=== PATIENT | male | born 1955 | race Caucasian/White ===

== ENCOUNTER 2016-11-15 01:16 | Emergency (ER) ==
[2016-11-15 01:17] VITALS: BMI 29.8
[2016-11-15 01:22] VITALS: TEMP 100.4
[2016-11-15] MEDS ORDERED: PREDNISONE PO STA (01:47)
[2016-11-15] MEDS ORDERED: ZITHROMAX PO STA (01:47)
--- NOTE | 2016-11-15 01:47 | ED.PDOC ---
General ED Provider: Dr. MARTHA ANDERSEN Chief Complaint: Cough Stated Complaint: Patient is a 61 year old male who complains of cough for 3 days. Time Seen by Physician: 01:45 Mode of Arrival: Walk-In Information Source: Patient Exam Limitations: No limitations Primary Care Provider: CHIN CHAUDHARY Nursing and Triage Documentation Reviewed and Agree: Yes Review of Systems - Review Of Systems Constitutional: Reports: No symptoms Eyes: Reports: No symptoms Ears, Nose, Mouth, Throat: Reports: Throat pain Respiratory: Reports: Cough Cardiac: Reports: No symptoms GI: Reports: No symptoms : Reports: No symptoms Musculoskeletal: Reports: No symptoms Skin: Reports: No symptoms Neurological: Reports: No symptoms Endocrine: Reports: No symptoms Hematologic/Lymphatic: Reports: No symptoms All Other Systems: Reviewed and Negative Past Medical History - Past Medical History Endocrine: Reports: None Cardiovascular: Reports: Hypertension Respiratory: Reports: COPD Hematological: Reports: None Gastrointestinal: Reports: None Genitourinary: Reports: None Neuro/Psych: Reports: None Musculoskeletal: Reports: None Cancer: Reports: None - Surgical History General Surgical History: Reports: Appendectomy, Cholecystectomy, Hernia Repair - Family History Family History: Reports: Unknown - Social History Smoking Status: Former smoker Hx Substance Use: No Alcohol Screening: None - Immunizations Tetanus Shot up to Date: Yes Physical Exam - Physical Exam Appearance: Ill-appearing, No pain distress, Well-nourished Ill-appearing: Mild Eyes: BRITTANY, EOMI, Conjunctiva clear ENT: Ears normal, Nose normal, Oropharynx normal Respiratory: Breath sounds equal, Breath sounds diminished, Respirations nonlabored Cardiovascular: RRR, Pulses normal, No rub, No murmur GI/: Soft, Nontender, No masses, Bowel sounds normal, No Organomegaly Musculoskeletal: Normal strength, ROM intact, No edema, No calf tenderness Skin: Warm, Dry, Normal color Neurological: Sensation intact, Motor intact, Reflexes intact, Cranial nerves intact, Alert, Oriented Psychiatric: Affect appropriate, Mood appropriate Critical Care Note - Critical Care Note Total Time (mins): 0 Course - Course Orders, Labs, Meds: Orders Category Date Time Status Azithromycin [Zithromax] MEDS 11/15/16 01:47 Discontinued 500 mg PO ONCE STA Prednisone MEDS 11/15/16 01:47 Discontinued 40 mg PO ONCE STA Medications Discontinued Medications Generic Name Dose Route Start Last Admin Trade Name Freq PRN Reason Stop Dose Admin Azithromycin 500 mg 11/15/16 01:47 11/15/16 01:55 Zithromax PO 11/15/16 01:48 500 mg ONCE STA Administration Prednisone 40 mg 11/15/16 01:47 11/15/16 01:55 Prednisone PO 11/15/16 01:48 40 mg ONCE STA Administration Vital Signs: Temp Pulse Resp BP Pulse Ox 11/15/16 02:01 89 129/77 93 L 11/15/16 01:19 100.4 F H 92 H 20 130/77 92 L Departure - Departure Time of Disposition: 01:46 Disposition: HOME SELF-CARE Discharge Problem: Acute bronchitis Qualifiers: Bronchitis organism: other organism Qualifier Code: (J20.8) Acute bronchitis due to other specified organisms Instructions: Acute Bronchitis (ED) Condition: Stable Pt referred to PMD for follow-up: Yes Additional Instructions: Take medications as prescribed Follow up with PCP in 3 days Prescriptions: Azithromycin [Zithromax] 250 mg PO DIRECTED #6 tablet Methylprednisolone [Medrol Dosepak] 4 mg PO DIRECTED #1 pkg Allergies/Adverse Reactions: Allergies No Known Allergies Allergy (Verified 11/15/16 01:35) Home Medications: Ambulatory Orders Fenofibric Acid (Choline) [Trilipix] 45 mg PO DAILY 11/08/12 Aspirin [Aspirin Chewable] 81 mg PO DAILYWM 12/02/15 Hydrochlorothiazide 25 mg PO DAILY 12/02/15 [place]-3 Fatty Acids/Fish Oil [Fish Oil 1,000 mg Softgel] 3 each PO DAILY Acetaminophen [Tylenol Arthritis] 650 mg PO DAILY 11/15/16 Aspirin [Aspirin EC] 81 mg PO DAILYWM 11/15/16 Atorvastatin Calcium 20 mg PO DAILY 11/15/16 Azithromycin [Zithromax] 250 mg PO DIRECTED #6 tablet 11/15/16 Bumetanide 1 mg PO DAILY 11/15/16 Citalopram Hydrobromide [Citalopram HBr] 20 mg PO DAILY 11/15/16 Losartan Potassium [Cozaar] 50 mg PO DAILY 11/15/16 Methylprednisolone [Medrol Dosepak] 4 mg PO DIRECTED #1 pkg 11/15/16 Multivitamin [Multi-Vitamin Daily] 1 tab PO DAILY 11/15/16 Omeprazole 20 mg PO DAILY 11/15/16 Ranitidine HCl [Zantac] 150 mg PO QDAC 11/15/16
[2016-11-15 02:02] VITALS: BP 129/77
== END 2016-11-15 02:02 | disposition home or self-care (01) ==
LOC: ED 01:16
DX: J20.9 Acute bronchitis, unspecified (principal)
CPT/HCPCS: 99283

== ENCOUNTER 2018-02-11 19:54 | Emergency (ER) ==
[2018-02-11 19:55] VITALS: BMI 29.8
[2018-02-11] MEDS ORDERED: LIDOCAINE HCL 1% SDV SUBCUT STA (19:55)
[2018-02-11 19:59] VITALS: BP 159/86; TEMP 99.4
--- NOTE | 2018-02-11 20:17 | ED.PDOC ---
General ED Provider: Dr. CHIN CHAUDHARY-ER Chief Complaint: Puncture Wound Stated Complaint: angelina got a fish hook in my haNd Time Seen by Physician: 20:15 Mode of Arrival: Walk-In Information Source: Patient Exam Limitations: No limitations Primary Care Provider: CHIN CHAUDHARY Nursing and Triage Documentation Reviewed and Agree: Yes Does patient meet sepsis criteria?: No System Inflammatory Response Syndrome: Not Applicable Sepsis Protocol: For patient's 13 years and over: Temp is 96.8 and below OR 101 and greater Pulse >90 BPM Resp >20/minute Acutely Altered Mental Status Are patient's symptoms suggestive of a new infection, such as: -Pneumonia -Skin, Soft Tissue -Endocarditis -UTI -Bone, Joint Infection -Implantable Device -Acute Abdominal Infection -Wound Infection -Meningitis -Blood Stream Catheter Infection -Unknown Skin Complaint Exam - Skin/Soft Tissue Complaint/Exam Onset/Duration: one hour Symptoms Are: Still present Timing: Constant Initial Severity: Mild Current Severity: Mild Location: left hand Character: Reports: Painful Aggravating: Reports: None Alleviating: Reports: None Associated Signs and Symptoms: Reports: Tenderness Related History: Reports: Foreign body Related Surgical History: Reports: None Recent Exposure to Others w/Similar Symptoms: No Joint Tenderness Present: No Differential Diagnoses: Foreign Body Review of Systems - Review Of Systems Constitutional: Reports: No symptoms Eyes: Reports: No symptoms Ears, Nose, Mouth, Throat: Reports: No symptoms Respiratory: Reports: No symptoms Cardiac: Reports: No symptoms GI: Reports: No symptoms : Reports: No symptoms Musculoskeletal: Reports: No symptoms Skin: Reports: Other Neurological: Reports: No symptoms Endocrine: Reports: No symptoms Hematologic/Lymphatic: Reports: No symptoms All Other Systems: Reviewed and Negative Past Medical History - Past Medical History Previously Healthy: Yes Endocrine: Reports: None Cardiovascular: Reports: Hypertension Respiratory: Reports: COPD Hematological: Reports: None Gastrointestinal: Reports: None Genitourinary: Reports: None Neuro/Psych: Reports: None Musculoskeletal: Reports: None Cancer: Reports: None - Surgical History General Surgical History: Reports: Appendectomy, Cholecystectomy, Hernia Repair - Family History Family History: Reports: Unknown - Social History Smoking Status: Former smoker Hx Substance Use: No Alcohol Screening: None - Immunizations Tetanus Shot up to Date: Yes Physical Exam - Physical Exam Appearance: Well-appearing Pain Distress: Mild Eyes: BRITTANY, EOMI, Conjunctiva clear ENT: Ears normal, Nose normal, Oropharynx normal Neck: Supple Respiratory: Airway patent, Breath sounds clear, Breath sounds equal, Respirations nonlabored Cardiovascular: RRR, Pulses normal, No rub, No murmur GI/: Soft, Nontender, No masses, Bowel sounds normal, No Organomegaly Musculoskeletal: Normal strength, ROM intact, No edema, No calf tenderness Skin: Warm, Dry, Normal color Neurological: Sensation intact, Motor intact, Reflexes intact, Cranial nerves intact, Alert, Oriented Psychiatric: Affect appropriate, Mood appropriate Procedures - Foreign Body Removal Location of Foreign Object: left hand between thumb and index finger Foreign Object: fish hook Depth of Object: superficial Type of Anesthesia: Local Medication Used: Yes: Lidocaine Prep: Hibiclens Irrigation: Yes Skin Incised: No Instruments Used: Yes: Manual, Forceps Foreign Body Identified and Removed: Yes Critical Care Note - Critical Care Note Total Time (mins): 0 Course - Course Orders, Labs, Meds: Orders Category Date Time Status Wound [ED WOUND CARE] .ONCE EMERGENCY 02/11/18 20:13 Active Lidocaine HCl/Pf [Lidocaine HCl 1% Sdv] MEDS 02/11/18 19:55 Discontinued 5 ml SUBCUT ONCE STA Medications Discontinued Medications Generic Name Dose Route Start Last Admin Trade Name Freq PRN Reason Stop Dose Admin Lidocaine HCl 5 ml 02/11/18 19:55 02/11/18 20:08 Lidocaine Hcl 1% Sdv SUBCUT 02/11/18 19:56 5 ml ONCE STA Administration Vital Signs: Temp Pulse Resp BP Pulse Ox 02/11/18 19:55 99.4 F 94 H 20 159/86 H 97 Departure - Departure Time of Disposition: 20:17 Disposition: HOME SELF-CARE Discharge Problem: Fish hook injury of hand Qualifiers: Encounter type: initial encounter Laterality: left Qualified Code(s): S69.92XA - Unspecified injury of left wrist, hand and finger(s), initial encounter Instructions: Soft Tissue Foreign Body (ED) Condition: Good Pt referred to PMD for follow-up: Yes IPMP verified?: No Additional Instructions: keep clean and dry--call me if any signs of infection Allergies/Adverse Reactions: Allergies No Known Allergies Allergy (Verified 02/11/18 20:00) Home Medications: Ambulatory Orders Fenofibric Acid (Choline) [Trilipix] 45 mg PO DAILY 11/08/12 Hydrochlorothiazide 25 mg PO DAILY 12/02/15 [place]-3 Fatty Acids/Fish Oil [Fish Oil 1,000 mg Softgel] 3 each PO DAILY Acetaminophen [Tylenol Arthritis] 650 mg PO DAILY 11/15/16 Aspirin [Aspirin EC] 81 mg PO DAILYWM 11/15/16 Atorvastatin Calcium 20 mg PO DAILY 11/15/16 Bumetanide 1 mg PO DAILY 11/15/16 Citalopram Hydrobromide [Citalopram HBr] 20 mg PO DAILY 11/15/16 Losartan Potassium [Cozaar] 50 mg PO DAILY 11/15/16 Multivitamin [Multi-Vitamin Daily] 1 tab PO DAILY 11/15/16 Omeprazole 20 mg PO DAILY 11/15/16 Ranitidine HCl [Zantac] 150 mg PO QDAC 11/15/16 Disposition Discussed With: Patient
== END 2018-02-11 20:20 | disposition home or self-care (01) ==
LOC: ED 19:54
DX: S61.442A Puncture wound with foreign body of left hand, initial encounter (principal)
CPT/HCPCS: 99283

== ENCOUNTER 2018-02-28 20:18 | Emergency (ER) ==
[2018-02-28 20:32] VITALS: BP 168/87; TEMP 98.5; BMI 29.7
[2018-02-28] MEDS ORDERED: SODIUM CHLORIDE 1,000 ML IV STA (20:47)
[2018-02-28] MEDS ORDERED: MORPHINE 4 MG/ML VIAL IVP STA (20:47)
[2018-02-28] MEDS ORDERED: ZOFRAN 4 MG/2 ML IVP STA (20:47)
--- NOTE | 2018-02-28 20:50 | ED.PDOC ---
General ED Provider: Dr. MARTHA ANDERSEN Chief Complaint: Abdominal Pain Stated Complaint: My belly husts. Has been hurting since 2 pm. It was intense at first but now better. It feels like when I had my diverticulitis. I dont have a fever. Had not had a bowel movement today. Pain does not radiate Time Seen by Physician: 20:47 Mode of Arrival: Walk-In Information Source: Patient Exam Limitations: No limitations Primary Care Provider: CHIN CHAUDHARY Nursing and Triage Documentation Reviewed and Agree: Yes Does patient meet sepsis criteria?: No System Inflammatory Response Syndrome: Not Applicable Sepsis Protocol: For patient's 13 years and over: Temp is 96.8 and below OR 101 and greater Pulse >90 BPM Resp >20/minute Acutely Altered Mental Status Are patient's symptoms suggestive of a new infection, such as: -Pneumonia -Skin, Soft Tissue -Endocarditis -UTI -Bone, Joint Infection -Implantable Device -Acute Abdominal Infection -Wound Infection -Meningitis -Blood Stream Catheter Infection -Unknown GI Complaint Exam - Abdominal Pain Complaint/Exam Onset: Gradual Duration: 8 hours Symptoms Are: Still present Timing: Constant Initial Severity: Severe Current Severity: Moderate Location of Pain: LLQ Radiates To: Denies: Chest, Back, Flank, LLQ, RLQ, Inguinal Character: Reports: Sharp, Aching Aggravating: Reports: None Alleviating: Reports: None Associated Signs and Symptoms: Denies: Diaphoresis, Fever, Cough, Chest pain, Dizziness, Back pain, Constipation, Blood in stool, Dysuria, Urinary frequency, Decreased urine output, Decreased appetite, Discharge, Nausea, Vomiting, Diarrhea, Decreased activity AAA Risk Factors: Reports: None Cardiac Risk Factors: Reports: None Testicular Torsion Risk Factors: Reports: None Surgical Obstruction Risk Factors: Reports: None Related Surgical History: Reports: Cholecystectomy, Appendectomy, Kidney Stones Abdominal Findings: Present: Other (Tenderness to palpation on the left lower quadrant.). Absent: Rebound tenderness Differential Diagnoses: Diverticulitis, Gastroenteritis, Ureteral Stone, UTI Review of Systems - Review Of Systems Constitutional: Reports: No symptoms Eyes: Reports: No symptoms Ears, Nose, Mouth, Throat: Reports: No symptoms Respiratory: Reports: No symptoms Cardiac: Reports: No symptoms GI: Reports: Abdominal pain, Poor appetite : Reports: No symptoms Musculoskeletal: Reports: No symptoms Skin: Reports: No symptoms Neurological: Reports: No symptoms Endocrine: Reports: No symptoms Hematologic/Lymphatic: Reports: No symptoms All Other Systems: Reviewed and Negative Past Medical History - Past Medical History Previously Healthy: Yes Endocrine: Reports: None Cardiovascular: Reports: Hypertension Respiratory: Reports: COPD Hematological: Reports: None Gastrointestinal: Reports: Diverticulitis Genitourinary: Reports: Kidney stones (5 years ago ) Neuro/Psych: Reports: None Musculoskeletal: Reports: None Cancer: Reports: None - Surgical History General Surgical History: Reports: Appendectomy, Cholecystectomy, Hernia Repair - Family History Family History: Reports: Unknown - Social History Smoking Status: Former smoker Hx Substance Use: No Alcohol Screening: None - Immunizations Tetanus Shot up to Date: Yes Physical Exam - Physical Exam Appearance: Well-appearing, Well-nourished Pain Distress: Moderate Eyes: BRITTANY, EOMI, Conjunctiva clear ENT: Ears normal, Nose normal, Oropharynx normal Respiratory: Airway patent, Breath sounds clear, Breath sounds equal, Respirations nonlabored Cardiovascular: RRR, Pulses normal, No rub, No murmur GI/: Soft, Tender Musculoskeletal: Normal strength, ROM intact, No edema, No calf tenderness Skin: Warm, Dry, Normal color Neurological: Sensation intact, Motor intact, Reflexes intact, Cranial nerves intact, Alert, Oriented Psychiatric: Affect appropriate, Mood appropriate Interpretation - Radiology Interpretation Radiology Interpretation By: Radiologist Radiology Results: Positive (Mild left hydronephrosis and Hydroureter secondary to a UVJ stone measuring 3-4 mm) Exam Interpreted: CT Scan Critical Care Note - Critical Care Note Total Time (mins): 0 Course - Course Orders, Labs, Meds: Orders Category Date Time Status ED IV/MEDIPORT/POWERPORT .ONCE EMERGENCY 02/28/18 20:47 Active AMYLASE Stat LAB 02/28/18 20:47 Ordered CBC W/ AUTO DIFF Stat LAB 02/28/18 20:47 Ordered COMPREHENSIVE METABOLIC PANEL Stat LAB 02/28/18 20:47 Ordered LIPASE Stat LAB 02/28/18 20:47 Ordered URINALYSIS C & S IF INDICATED Stat LAB 02/28/18 20:52 Ordered 0.9 % Sodium Chloride [Saline Flush] MEDS 02/28/18 20:47 Ordered 1 syr IVF PRN PRN Ketorolac Tromethamine [Toradol] MEDS 02/28/18 21:22 Stat 30 mg IVP ONCE STA Morphine Sulfate [Morphine 2 mg/ml Syringe] MEDS 02/28/18 20:53 Discontinued 4 mg IVP ONCE STA Morphine Sulfate [Morphine 4 mg/ml Vial] MEDS 02/28/18 20:47 Stop Req 4 mg IVP ONCE STA Ondansetron HCl/Pf [Zofran 4 mg/2 ml] MEDS 02/28/18 20:47 Discontinued 4 mg IVP ONCE STA Sodium Chloride 0.9% [Sodium Chloride] 1,000 ml MEDS 02/28/18 20:47 Active IV BOLUS Tamsulosin HCl [Flomax] MEDS 02/28/18 21:24 Stat 0.4 mg PO ONCE STA CT ABD/PEL WO RENAL STONE PROT Stat RADS 02/28/18 20:47 Completed Medications Generic Name Dose Route Start Last Admin Trade Name Freq PRN Reason Stop Dose Admin Sodium Chloride 1,000 mls @ 1,000 mls/hr 02/28/18 20:47 02/28/18 21:11 Sodium Chloride IV 02/28/18 21:46 1,000 mls/hr BOLUS STA Administration Sodium Chloride 1 syr 02/28/18 20:47 Saline Flush IVF PRN PRN To flush IV Discontinued Medications Generic Name Dose Route Start Last Admin Trade Name Freq PRN Reason Stop Dose Admin Ketorolac Tromethamine 30 mg 02/28/18 21:22 Toradol IVP 02/28/18 21:23 ONCE STA Morphine Sulfate 4 mg 02/28/18 20:47 02/28/18 21:17 Morphine 4 Mg/Ml Vial IVP 02/28/18 20:48 Not Given ONCE STA Morphine Sulfate 4 mg 02/28/18 20:53 02/28/18 21:16 Morphine 2 Mg/Ml Syringe IVP 02/28/18 20:54 4 mg ONCE STA Administration Ondansetron HCl 4 mg 02/28/18 20:47 02/28/18 21:16 Zofran 4 Mg/2 Ml IVP 02/28/18 20:48 4 mg ONCE STA Administration Tamsulosin HCl 0.4 mg 02/28/18 21:24 Flomax PO 02/28/18 21:25 ONCE STA Vital Signs: Temp Pulse Resp BP Pulse Ox 02/28/18 20:19 98.5 F 92 H 20 168/87 H 94 L Departure - Departure Time of Disposition: 21:26 Disposition: HOME SELF-CARE Discharge Problem: Renal calculus, left Instructions: Kidney Stones (ED) Condition: Fair Pt referred to PMD for follow-up: Yes IPMP verified?: No Additional Instructions: Strain your urine Follow up with PCP in 3 days Push fluids Prescriptions: Tamsulosin HCl [Flomax] 0.4 mg PO DAILY #10 cap.er.24h Allergies/Adverse Reactions: Allergies No Known Allergies Allergy (Verified 02/28/18 20:26) Home Medications: Ambulatory Orders Fenofibric Acid (Choline) [Trilipix] 45 mg PO DAILY 11/08/12 [place]-3 Fatty Acids/Fish Oil [Fish Oil 1,000 mg Softgel] 3 each PO DAILY Aspirin [Aspirin EC] 81 mg PO DAILYWM 11/15/16 Atorvastatin Calcium 20 mg PO DAILY 11/15/16 Bumetanide 1 mg PO DAILY 11/15/16 Citalopram Hydrobromide [Citalopram HBr] 20 mg PO DAILY 11/15/16 Losartan Potassium [Cozaar] 50 mg PO DAILY 11/15/16 Multivitamin [Multi-Vitamin Daily] 1 tab PO DAILY 11/15/16 Omeprazole 20 mg PO DAILY 11/15/16 Ranitidine HCl [Zantac] 150 mg PO QDAC 11/15/16 Acetaminophen [Tylenol Arthritis] 650 mg PO BID PRN 02/28/18 Hydrocodone Bit/Acetaminophen [[place] 7.5-325] 1 each PO TID PRN 02/28/18 Tamsulosin HCl [Flomax] 0.4 mg PO DAILY #10 cap.er.24h 02/28/18 Disposition Discussed With: Patient, Family
[2018-02-28] MEDS ORDERED: MORPHINE 2 MG/ML SYRINGE IVP STA (20:53)
--- NOTE | 2018-02-28 21:12 | CT ---
Exam: CT of the abdomen and pelvis without contrast History: Left lower quadrant pain Technique: [address] of the abdomen and pelvis without intravascular contrast FINDINGS: The lung bases are clear. The liver density is diffusely decreased measuring 28 HU. Prio r cholecystectomy. Punctate nonobstructing nephrolithiasis in the right kidney. Mild left hydroneph rosis and hydroureter with perinephric and periureteral stranding. There is a 3.3 x 3.1 cm left uret erovesicular junction calculus. Multiple nonobstructing calcifications in the left kidney with maximu m diameter of 6.7 x 5.2 mm. The appendix is not seen. Normal caliber bowel loops. [place] colonic diver ticulosis. Atherosclerotic calcification of the aorta without aneurysm. Colonic diverticulosis of the sigmoid. No pelvic fat inflammation. Left ureterovesicular junction c alculus. No acute findings of the skeleton. Impression: 1. Mild left hydronephrosis and hydroureter secondary to a ureterovesicular junction measuring 3-4 mm . 2. [place] colonic diverticulosis without acute diverticulitis 3. Liver steatosis 4. Bilateral nonobstructing nephrolithiasis
[2018-02-28] MEDS ORDERED: TORADOL IVP STA (21:22)
[2018-02-28] MEDS ORDERED: FLOMAX PO STA (21:24)
== END 2018-02-28 22:46 | disposition home or self-care (01) ==
LOC: ED 20:18
DX: N20.0 Calculus of kidney (principal); I10 Essential (primary) hypertension; Z87.442 Personal history of urinary calculi; Z87.19 Personal history of other diseases of the digestive system
CPT/HCPCS: 36415; 74176; 80053; 81001; 82150; 83690; 85025; 96361; 96374; 96375; 99283

== ENCOUNTER 2018-03-04 08:24 | Outpatient (CLI) ==
[2012-11-08 15:04] VITALS: TEMP 97.5
== END 2018-03-04 08:25 | disposition home or self-care (01) ==
LOC: LAB 08:24
PROVIDERS: ATTEND Internal Medicine Geriatric Medicine
DX: N20.9 Urinary calculus, unspecified (principal)
CPT/HCPCS: 36415; 82360